=== PATIENT | male | born 1985 | race Caucasian/White ===

== ENCOUNTER 2021-11-22 10:03 | Emergency (ER) | payer BC, SELFPAY ==
[2021-11-22 10:13] VITALS: BP 126/74; PULSE 76; RESP 16; TEMP 37.1; O2SAT 97
--- NOTE | 2021-11-22 10:22 | ED.URI ---
HPI - URI/Sore Throat General Chief Complaint: Upper Respiratory Infection Stated Complaint: cough Time Seen by Provider: 11/22/21 10:22 Source: patient, RN notes reviewed and old records reviewed Mode of arrival: ambulatory Limitations: no limitations History of Present Illness HPI Narrative: 36 year old male presents to [facility] care with complaints of 3 day history of illness which included initially body aches, chills and sweats, cough and runny nose. Patient states that he recently quit smoking cigarettes and stated vaping and he states that he chews tobacco also. Patient states that he has been taking OTC medications for his sinus congestion and drainage and cough. Cough continues to be frequent and aggravating. Has had flu shot and also Covid vaccinations with Booster. Patient states that he has harshal taking Sudafed and some OTC cough syrup. MD elicited complaint: cough, rhinorrhea and nasal congestion Related Data Home Medications Medication Instructions Recorded Confirmed No Home Medications 11/22/21 11/22/21 Allergies Allergy/AdvReac Type Severity Reaction Status Date / Time No Known Allergies Allergy Verified 11/22/21 10:41 Review of Systems Review of Systems: CONSTITUTIONAL: Denies fever, chills, or sweats. EYES: Denies visual changes, redness, or discharge. ENT: Positive for rhinorrhea, congestion,no sore throat, or otalgia. CARDIOVASCULAR: Denies chest pain, palpitations, or edema. RESPIRATORY: Positive cough denies dyspnea. GASTROINTESTINAL: Denies abdominal pain, nausea, vomiting, or diarrhea. GENITOURINARY: Denies dysuria or hematuria. SKIN: Denies rash or itching. MUSCULOSKELETAL: Denies back pain, joint pain, positive body aches NEUROLOGIC: Denies headache, numbness, or weakness. PSYCHIATRIC: Denies anxiety or depression. All systems reviewed & are unremarkable except as noted in HPI and below PMFSH Past Medical History Medical History (Updated 11/23/21 @ 08:54 by Lynne Pritchard NP) Tobacco abuse Surgical History Surgical History (Updated 11/22/21 @ 10:53 by Lynne Pritchard NP) History of hernia repair Social History Social History (Updated 11/23/21 @ 08:53 by Lynne Pritchard NP) Tobacco type: e-cigarettes/vaping Smokeless tobacco user: chewing tobacco Additional smoking assessment comments: prior cigarette smoker since age 14 Alcohol intake: never Substance use: never Living arrangements: with family Gender identity (if verbalized by the patient): Male Comments At time of signature, agree with nursing past medical, surgical, social and family history. There is no relevant family history pertinent to the presenting complaint Exam Narrative: GENERAL: Well-appearing, well-nourished, and in no acute distress. HEAD: Normocephalic, atraumatic. EYES: PERRLA and EOMI. ENT: Nares red with clear rhinorrhea no epistaxis. Mucous membranes moist.TM's normal with good light reflex, throat red with no lesion or tonsil swelling, post nasal drainage present NECK: Supple.no lymphadenopathy CHEST: Clear to auscultation. No respiratory distress.SAO2 97% on room air, cough dry no tachypnea HEART: Regular rate and rhythm. No murmur heard. Normal peripheral pulses. ABDOMEN: Soft, nontender, nondistended, normal active bowel sounds. EXTREMITIES: Normal range of motion. No edema. SKIN: Warm, dry, no rash. NEURO: No focal deficits. Alert and oriented x3. Course Course Level of Care: Express Care Visit Vital Signs Vital signs: Vital Signs Temperature 37.1 C 11/22/21 10:13 Pulse Rate 76 11/22/21 10:13 Respiratory Rate 16 11/22/21 10:13 Blood Pressure 126/74 11/22/21 10:13 Pulse Oximetry 97 11/22/21 10:13 Temperature 37.1 C 11/22/21 10:13 Pulse Rate 76 11/22/21 10:13 Respiratory Rate 16 11/22/21 10:13 Blood Pressure 126/74 11/22/21 10:13 Pulse Oximetry 97 11/22/21 10:13 MDM - URI/Sore Throat Differential Diagnosis Differential diagnosis:
== END 2021-11-22 10:50 | disposition home or self-care (01) ==
PROVIDERS: Emergency Provider Registered Nurse
DX: J06.9 Acute upper respiratory infection, unspecified (principal); F17.290 Nicotine dependence, other tobacco product, uncomplicated; F17.220 Nicotine dependence, chewing tobacco, uncomplicated
CPT/HCPCS: 87804; 99213; G0463

== ENCOUNTER 2022-11-01 13:07 | Emergency (ER) | payer BC, SELFPAY ==
[2022-11-01 13:15] VITALS: BP 122/64; PULSE 64; RESP 18; TEMP 36.9; O2SAT 98
--- NOTE | 2022-11-01 13:48 | ED.URI ---
HPI - URI/Sore Throat General Chief Complaint: Upper Respiratory Infection Stated Complaint: cold/flu Source: patient and RN notes reviewed History of Present Illness HPI Narrative: 37 yo M presents to urgent care with complaints of a cough, worse at nighttime, x 2 weeks. Pt also reports a hoarse voice now. Denies any SOB, chest pain, congestion, ear pain, sore throat, N/V/D, or fevers. PT has taken OTC cold and cough meds with moderate relief. Related Data Allergies Allergy/AdvReac Type Severity Reaction Status Date / Time No Known Allergies Allergy Verified 11/01/22 13:30 Review of Systems Review of Systems: Pertinent positives and pertinent negatives per HPI. [facility] Past Medical History Medical History (Updated 11/01/22 @ 13:51 by Candace Judge APRN) Tobacco abuse Surgical History Surgical History (System 04/12/22 @ 10:16 by Marcus Scott) History of hernia repair Social History Social History (System 04/12/22 @ 10:16 by Marcus Scott) Tobacco type: e-cigarettes/vaping Smokeless tobacco user: chewing tobacco Additional smoking assessment comments: prior cigarette smoker since age 14 Alcohol intake: never Substance use: never Living arrangements: with family Gender identity (if verbalized by the patient): Male Comments At the time of my signature, I reviewed and agree with the nursing past medical, surgical, social, and family history. There is no relevant family history pertinent to the patient complaint. Exam Narrative: GENERAL: This is a well-nourished, well-developed patient, in no apparent distress. HEAD: normocephalic, atraumatic. EYES: Sclera clear/white. Vision is grossly intact. EARS: External ears normal, auditory canals clear and without drainage. Hearing grossly intact. NOSE: External nose normal with no obvious nasal discharge, nares without redness, no rhinorrhea. THROAT: Mucous membranes moist, posterior pharynx clear. NECK: Neck supple, non-tender without lymphadenopathy, masses or thyromegaly. CARDIOVASCULAR: Regular rate RESPIRATORY: Mild wheezes noted in lower lobes. GASTROINTESTINAL: Abdomen soft, non-tender, nondistended. Bowel sounds are active. No hepato-splenomegaly, or palpable masses. No guarding. SKIN: warm, intact with no suspicious lesions or rash, good texture and turgor. NEURO: awake, alert, and oriented to person, place and time. There were no obvious focal neurologic abnormalities. Course Course Level of Care: Express Care Visit Vital Signs Vital signs: Vital Signs Temperature 98.4 F 11/01/22 13:15 Pulse Rate 64 11/01/22 13:15 Respiratory Rate 18 11/01/22 13:15 Blood Pressure 122/64 11/01/22 13:15 Pulse Oximetry 98 11/01/22 13:15 Oxygen Delivery Room Air 11/01/22 13:15 Temperature 98.4 F 11/01/22 13:15 Pulse Rate 64 11/01/22 13:15 Respiratory Rate 18 11/01/22 13:15 Blood Pressure 122/64 11/01/22 13:15 Pulse Oximetry 98 11/01/22 13:15 Oxygen Delivery Room Air 11/01/22 13:15 Reviewed MDM - URI/Sore Throat MDM Narrative Medical decision making narrative: Take steroids as directed. May use the inhaler every 4-6 hours as needed for coughing. Increase fluids at home. Avoid any and all smoke. May use a humidifier in the bedroom. Increase your Vitamin C. Follow-up with personal physician in 2-5 days. Differential Diagnosis Differential diagnosis: Likely upper respiratory infection, viral infection and bronchitis Critical Care Time Critical Care Time Critical Care Time: No Discharge Plan Discharge Clinical Impression: Bronchitis Patient Disposition: Home, Self-Care Condition: Stable Instructions: Acute Bronchitis (ED) Additional Instructions: Take steroids as directed. May use the inhaler every 4-6 hours as needed for coughing. Increase fluids at home. Avoid any and all smoke. May use a humidifier in the bedroom. Increase your Vitamin C. Follow-up with personal physician in 2-5 d
== END 2022-11-01 13:55 | disposition home or self-care (01) ==
PROVIDERS: Emergency Provider Nurse Practitioner Family; PCP Internal Medicine
DX: J40 Bronchitis, not specified as acute or chronic (principal); F17.290 Nicotine dependence, other tobacco product, uncomplicated; F17.220 Nicotine dependence, chewing tobacco, uncomplicated
CPT/HCPCS: 99213; G0463